=== PATIENT | male | born 1985 | race African-American/Black ===

== ENCOUNTER 2017-09-15 11:41 | Emergency (ER) | payer SELFPAY, OTHER, MEDICAID ==
[2017-09-15 12:42] LABS: BASO % 0.5 % (0.0-1.0); EOS # 0.1 10^3/uL (0.0-0.50); HEMATOCRIT 44.7 % (42.0-52.0); HEMOGLOBIN 15.4 g/dl (13.5-17.5); IMMATURE GRANULOCYTE % 0.3 % (0-3.0); LYMPH # 1.7 10^3/uL (1.5-4.5); LYMPH % 28.9 % (24.0-44.0); MEAN CORPUSCULAR HEMOGLOBIN 28.8 pg (27.0-33.0); MEAN CORPUSCULAR HGB CONC 34.5 g/dl (32.0-36.5); MEAN CORPUSCULAR VOLUME 83.7 fl (80.0-96.0); MONO # 0.6 10^3/uL (0.0-0.8); MONO % 9.9 % (0.0-5.0); NEUTROPHILS # 3.4 10^3/uL (1.8-7.7); NEUTROPHILS % 59.4 % (36.0-66.0); PLATELET COUNT, AUTOMATED 252 10^3/uL (150-450); RED BLOOD COUNT 5.34 10^6/uL (4.30-6.10); RED CELL DISTRIBUTION WIDTH 12.6 % (11.5-14.5); WHITE BLOOD COUNT 5.8 10^3/uL (4.0-10.0)
[2017-09-15 13:08] LABS: ALBUMIN 4.1 GM/DL (3.2-5.2); ALBUMIN/GLOBULIN RATIO 1.14 (1.00-1.93); ALKALINE PHOSPHATASE 63 U/L (45-117); ALT/SGPT 34 U/L (12-78); ANION GAP 6 MEQ/L (8-16); AST/SGOT 17 U/L (7-37); BILIRUBIN,DIRECT < 0.1 MG/DL (0.0-0.2); BILIRUBIN,TOTAL 0.3 MG/DL (0.2-1.0); BLOOD UREA NITROGEN 18 MG/DL (7-18); CALCIUM LEVEL 8.6 MG/DL (8.5-10.1); CARBON DIOXIDE LEVEL 31 MEQ/L (21-32); CHLORIDE LEVEL 107 MEQ/L (98-107); CK-MB VALUE MASS 2.3 NG/ML (<3.6); CPK CREATINE PHOSPHOKINASE 204 U/L (39-308); CREATININE FOR GFR 1.12 MG/DL (0.70-1.30); GLOMERULAR FILTRATION RATE > 60.0 (>60); GLUCOSE, FASTING 95 MG/DL (70-100); LIPASE 203 U/L (73-393); MB/CK RELATIVE INDEX 1.12 (< OR =4); POTASSIUM SERUM 4.3 MEQ/L (3.5-5.1); SODIUM LEVEL 144 MEQ/L (136-145); TOTAL PROTEIN 7.7 GM/DL (6.4-8.2); TROPONIN I < 0.02 NG/ML (< 0.10)
== END 2017-09-15 13:46 | disposition home or self-care (01) ==
LOC: M ED 11:41
DX: R07.89 Other chest pain (principal); Z87.891 Personal history of nicotine dependence; Z82.49 Family history of ischemic heart disease and other diseases of the circulatory system
CPT/HCPCS: 71046

== ENCOUNTER 2018-06-04 01:57 | Emergency (ER) | payer SELFPAY ==
[~2018-06-04] VITALS: Ht 172.7 cm; Wt 72.7 kg
[2018-06-04 01:58] VITALS: BP 149/88
[2018-06-04] MEDS ORDERED: IBUP-1022 PO (02:02)
[2018-06-04] MEDS ORDERED: BUPIVACAINE LIPOSOME/PF 1.3% 20ML VIAL (13.3MG/ML)(EXPAREL)(C9290 PER1MG) INFIL ONE (02:45)
[2018-06-04] MEDS ORDERED: AUGM500T34 PO (03:48)
[2018-06-04] MEDS ORDERED: AUGMENTIN 875 MG TAB As Ordered ONE (03:49)
== END 2018-06-04 03:54 | disposition home or self-care (01) ==
LOC: M ED 01:57
DX: K08.89 Other specified disorders of teeth and supporting structures (principal)
CPT/HCPCS: 64400; 99282; C9290

== ENCOUNTER 2019-03-21 13:22 | Emergency (ER) | payer BC, SELFPAY ==
[~2019-03-21] VITALS: Ht 172.7 cm; Wt 68.4 kg
[~2019-03-21 13:22] MED LIST: AUGM500T34 PO; IBUP-1022 PO
[2019-03-21] MEDS ORDERED: ACET1TAB55 PO (14:29)
[2019-03-21] MEDS ORDERED: KETOROLAC TROMETHAMINE 10 MG TAB PO ONE (15:00)
--- NOTE | 2019-03-21 16:06 | REP ---
Clinical: Left testicular pain and swelling. Technique: Real time dozier scale and color Doppler evaluation using linear high frequency and curved array transducers. Findings: Bilateral testicles and epididymi are relatively normal in contour, size, echogenicity and vascularity without evidence for torsion, infectious/inflammatory process, or mass lesion. Incidental right epididymal head cyst measures 4 mm diameter. There is prominent asymmetric enlargement to the left spermatic cord which may be related to the patient's symptoms. Impression: 1. Relatively normal appearance the bilateral testicles and epididymi without evidence for torsion or epididymitis/orchitis. 2. Prominent appearance to the left spermatic cord raising the possibility of funiculitis. Electronically Signed by Jose Rutledge MD 03/21/2019 03:58 P
[2019-03-21] MEDS ORDERED: KETO10TAB PO (17:26)
[2019-03-21] MEDS ORDERED: LEVA1TAB2 PO (17:26)
[2019-03-21 17:32] VITALS: BP 128/64
[2019-03-21 18:39] LABS: CHLAMYDIA DNA AMPLIFICATION NEGATIVE (NEGATIVE); GC DNA AMPLIFICATION NEGATIVE (NEGATIVE)
== END 2019-03-21 17:35 | disposition home or self-care (01) ==
LOC: M ED 13:22
DX: N49.1 Inflammatory disorders of spermatic cord, tunica vaginalis and vas deferens (principal); F17.210 Nicotine dependence, cigarettes, uncomplicated

== ENCOUNTER 2022-09-04 13:50 | Emergency (ER) | payer BC ==
[~2022-09-04] VITALS: Ht 172.7 cm; Wt 72.7 kg
[~2022-09-04 13:50] MED LIST changes: +ACET1TAB55 PO; +KETO10TAB PO; +LEVA1TAB2 PO
[2022-09-04 13:51] VITALS: BP 154/92; TEMP 98.1; O2SAT 99
[2022-09-04] MEDS ORDERED: BOOSTRIX VACCINE (TETANUS/DIPHTH/ACEL. PERTUSSIS) 0.5ML SYR IM ONE (17:40)
[2022-09-04] MEDS ORDERED: NEOSPORIN OINT 0.9 GM PKT TOP ONE (17:55)
== END 2022-09-04 18:35 | disposition home or self-care (01) ==
LOC: M ED 13:50
DX: S29.001A Unspecified injury of muscle and tendon of front wall of thorax, initial encounter (principal); S61.002A Unspecified open wound of left thumb without damage to nail, initial encounter; V86.55XA Driver of 3- or 4- wheeled all-terrain vehicle (ATV) injured in nontraffic accident, initial encounter; F10.10 Alcohol abuse, uncomplicated; Z79.1 Long term (current) use of non-steroidal anti-inflammatories (NSAID)